=== PATIENT | female | born 1995 | race Caucasian/White ===

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

== ENCOUNTER 2017-03-20 17:59 | Outpatient (CLI) | payer OTHER, MEDICAID ==
[2017-03-20 18:33] LABS: AMORPHOUS SEDIMENT,URINE TRACE /HPF; APPEARANCE,URINE SLIGHTLY-CLOUDY; BILIRUBIN,URINE NEGATIVE (NEGATIVE); GLUCOSE, URINE NEGATIVE (NEGATIVE); KETONES,URINE NEGATIVE (NEGATIVE); LEUKOCYTE ESTERASE,URINE MODERATE (NEGATIVE); NITRITE,URINE NEGATIVE (NEGATIVE); PROTEIN,URINE NEGATIVE (NEGATIVE); URINE SPECIFIC GRAVITY 1.006; UROBILINOGEN,URINE NEGATIVE mg/dL (<2.0)
[2017-03-20 18:46] LABS: URINE BARBITURATES SCREEN NEGATIVE; URINE METHADONE SCREEN NEGATIVE; URINE OPIATES LOW NEGATIVE; URINE PHENCYCLIDINE SCREEN NEGATIVE
== END 2017-03-20 18:44 | disposition home or self-care (01) ==
LOC: LC 17:59
PROVIDERS: ATTEND Obstetrics & Gynecology
PROC: 4A1HXCZ Monitoring of Products of Conception, Cardiac Rate, External Approach (ICD-10-PCS; principal; 2017-03-20)
DX: O36.8130 Decreased fetal movements, third trimester, not applicable or unspecified (principal); Z3A.29 29 weeks gestation of pregnancy
CPT/HCPCS: 80307; 81001

== ENCOUNTER 2017-04-09 21:39 | Outpatient (CLI) | payer OTHER, MEDICAID ==
[2017-04-09 22:28] LABS: APPEARANCE,URINE SLIGHTLY-CLOUDY; BILIRUBIN,URINE NEGATIVE (NEGATIVE); GLUCOSE, URINE NEGATIVE (NEGATIVE); KETONES,URINE NEGATIVE (NEGATIVE); LEUKOCYTE ESTERASE,URINE NEGATIVE (NEGATIVE); NITRITE,URINE NEGATIVE (NEGATIVE); PROTEIN,URINE NEGATIVE (NEGATIVE); URINE SPECIFIC GRAVITY 1.012; UROBILINOGEN,URINE NEGATIVE mg/dL (<2.0)
[2017-04-09 22:39] LABS: URINE BARBITURATES SCREEN NEGATIVE; URINE METHADONE SCREEN NEGATIVE; URINE OPIATES LOW NEGATIVE; URINE PHENCYCLIDINE SCREEN NEGATIVE
[2017-04-09] MEDS: RINGERS SOLUTION,LACTATED 1,000 ML IV PRN ×2 (23:14→23:16)
[2017-04-09] MEDS ORDERED: TERBUTALINE SULFATE INJ/PF 1 MG/1 ML SDV SUBCUT ONE (23:21)
[2017-04-09] MEDS ORDERED: TERBUTALINE SULFATE INJ/PF 1 MG/1 ML SDV ONE (23:22)
--- NOTE | 2017-04-10 00:17 | RADIOLOGY REPORT (SQ) ---
EXAM DESCRIPTION: U/S OB LIMITED COMPLETED DATE/TIME: 04/10/2017 12:04 am REASON FOR STUDY: cervical length, EFW, presentation for PTL COMPARISON: None. TECHNIQUE: Limited transvaginal grayscale ultrasound for evaluation of specific requested obstetrica l parameters. LIMITATIONS: None. FINDINGS: CERVICAL LENGTH: 2.6 cm Closed. FHR: 137 beats per minute. PRESENTATION: Cephalic. OTHER: No other significant findings. IMPRESSION: LIMITED OBSTETRICAL ULTRASOUND WITH MEASURED PARAMETERS DELINEATED ABOVE. Trimester of : Third trimester - 28 weeks to delivery. TECHNICAL DOCUMENTATION: JOB ID: [id number] [employer]- All Rights Reserved
== END 2017-04-10 00:36 | disposition home or self-care (01) ==
LOC: LC 21:39
PROVIDERS: ATTEND Obstetrics & Gynecology
PROC: 4A1HXCZ Monitoring of Products of Conception, Cardiac Rate, External Approach (ICD-10-PCS; principal; 2017-04-09)
DX: O47.03 False labor before 37 completed weeks of gestation, third trimester (principal); Z3A.31 31 weeks gestation of pregnancy
CPT/HCPCS: 59899; 94760; 81001; 80307; 76815; J3105

== ENCOUNTER 2017-04-30 15:15 | Outpatient (CLI) | payer OTHER, MEDICAID ==
[2017-04-30 16:12] LABS: AMNISURE (ROM) NEGATIVE (NEGATIVE)
[2017-04-30 16:15] LABS: APPEARANCE,URINE CLEAR; BILIRUBIN,URINE NEGATIVE (NEGATIVE); GLUCOSE, URINE NEGATIVE (NEGATIVE); KETONES,URINE NEGATIVE (NEGATIVE); LEUKOCYTE ESTERASE,URINE TRACE (NEGATIVE); NITRITE,URINE NEGATIVE (NEGATIVE); PROTEIN,URINE NEGATIVE (NEGATIVE); URINE SPECIFIC GRAVITY 1.005; UROBILINOGEN,URINE NEGATIVE mg/dL (<2.0)
[2017-04-30 16:26] LABS: BACTERIA,URINE TRACE /HPF; WBC,URINE 0-1 /HPF
[2017-04-30 16:29] LABS: URINE BARBITURATES SCREEN NEGATIVE; URINE METHADONE SCREEN NEGATIVE; URINE OPIATES LOW NEGATIVE; URINE PHENCYCLIDINE SCREEN NEGATIVE
--- NOTE | 2017-04-30 16:31 | Non Stress Test Report ---
Non Stress Test Datetime Report Generated by CPN: 04/30/2017 16:30 DEMOGRAPHIC Test Number: 1 EGA NST: 34.6 INDICATION Indication for Study: Ordered by Provider MONITORING Monitor Explained: Monitor Explained; Test Explained; Patient Verbalized Understanding Time on Monitor: 04/30/2017 15:39 Time off Monitor: 04/30/2017 16:21 NST Duration: 42 NST INTERVENTIONS NST Interventions: PO Hydration; Reposition Patient Physician Notified NST: DrAntoni Greer BABY A: [id number] BABY A Movement : Present Contraction Frequency : Irreg FHR Baseline : 140 Accelerations : 15X15 Decelerations : None Variability : Moderate 6-25bpm NST Review: Meets Criteria for Reactive NST NST Review and Verified By : Primitivo Valentin RN NST Results: Reactive NST REPORT Report Trigger: Send Report
[2017-04-30] MEDS ORDERED: PENICILLIN G-K 5 MILLION UNIT VIAL ONE ×2 (17:31→22:10)
[2017-04-30] MEDS: RINGERS SOLUTION,LACTATED 1,000 ML IV PRN ×2 (17:33→19:04)
[2017-04-30 18:00] LABS: ABSOLUTE EOSINOPHILS # (AUTO) 0.2 10^3/uL (0.0-0.6); ABSOLUTE LYMPHOCYTES (AUTO) 2.5 10^3/uL (0.5-4.7); ABSOLUTE MONOCYTES (AUTO) 0.8 10^3/uL (0.1-1.4); ABSOLUTE NEUT (AUTO) 8.9 10^3/uL (1.7-8.2); BASOPHILS % (AUTO) 0.3 % (0-2); EOSINOPHILS % (AUTO) 1.6 % (0-6); HEMATOCRIT 32.9 % (36.0-47.0); HEMOGLOBIN 11.3 g/dL (12.0-15.5); MEAN CORPUSCULAR HEMOGLOBIN 31.9 pg (27.0-33.4); MEAN CORPUSCULAR HGB CONC 34.4 g/dL (32.0-36.0); MEAN CORPUSCULAR VOLUME 93 fl (80-97); MONOCYTES % (AUTO) 6.1 % (3-13); RED BLOOD COUNT 3.55 10^6/uL (3.72-5.28); RED CELL DISTRIBUTION WIDTH 12.6 % (11.5-14.0); WHITE BLOOD COUNT 12.3 10^3/uL (4.0-10.5)
[2017-04-30] MEDS ORDERED: PENICILLIN G POTASSIUM 5,000,000 UNIT in DEXTROSE 5%-WATER 100 ML IV ONE (18:00)
[2017-04-30 19:57] LABS: CHLAM PCR NOT DETECTED (NOT DETECT)
--- NOTE | 2017-04-30 19:57 | RADIOLOGY REPORT (SQ) ---
EXAM DESCRIPTION: U/S OB LIMITED COMPLETED DATE/TIME: 04/30/2017 7:37 pm REASON FOR STUDY: presentation, EFW, and JONNIE for ctx. bedside u/s COMPARISON: None. TECHNIQUE: Limited transabdominal grayscale ultrasound for evaluation of specific requested obstetri gerardo parameters. LIMITATIONS: None. FINDINGS: JONNIE: 10.3 cm. FHR: 132 beats per minute. PRESENTATION: Cephalic. OTHER: EFW 7 lb 14 oz. EGA 38 weeks 4 days. IMPRESSION: LIMITED OBSTETRICAL ULTRASOUND WITH MEASURED PARAMETERS DELINEATED ABOVE. Trimester of : Third trimester - 28 weeks to delivery. TECHNICAL DOCUMENTATION: JOB ID: [id number] [employer]- All Rights Reserved
[2017-04-30] MEDS: PENICILLIN G POTASSIUM 2,500,000 UNIT in DEXTROSE 5%-WATER 50 ML IV SCH (22:11)
[2017-05-01] MEDS ORDERED: PENICILLIN G-K 5 MILLION UNIT VIAL ONE ×2 (02:37→06:31)
[2017-05-01] MEDS: PENICILLIN G POTASSIUM 2,500,000 UNIT in DEXTROSE 5%-WATER 50 ML IV SCH ×2 (02:40→06:36)
[2017-05-01] MEDS: RINGERS SOLUTION,LACTATED 1,000 ML IV PRN (02:47)
--- NOTE | 2017-05-01 07:41 | PDOC DISCHARGE SUMMARY ---
General - Admit/Disc Date/PCP Admission Date/Primary Care Provider: 04/30/17 17:09 DARIO KIMBLE Discharge Date: 05/01/17 - Discharge Diagnosis (1) labor in third trimester Is this a current diagnosis for this admission?: Yes Summary: Pt admitted due to ctx and cvx 3 cm. Cervix change to 4cm approx 4 hours later. Now no cervical change since 2099 last pm and pt reports contractions are significantly improved. Still feels the occasional ctx - Additional Information Home Medications: No122/Iron/Folic Acid [ Multi Tablet] 1 tab PO DAILY 03/20/17 Albuterol Sulfate [Proair Hfa Inhalation Aerosol 8.5 gm Mdi] 2 puff IH Q4 PRN History of Present Illness Patient complains of: contractions History of Present Illness: SEBASTIAN PARSONS is a 22 year old female admitted due to ctx at 34+6ega and cvx 3 cm. Cervix change to 4cm approx 4 hours later. Now no cervical change since 2099 last pm and pt reports contractions are significantly improved. Still feels the occasional ctx but not painful like last night. GBS done at admission Hospital Course Hospital Course: 22 year old female admitted due to ctx at 34+6ega and cvx 3 cm. Cervix change to 4cm approx 4 hours later. Now no cervical change since 2099 last pm and pt reports contractions are significantly improved. Still feels the occasional ctx but not painful like last night. GBS done at admission. Now feeling much better. Meets criteria for discharge and will f/u with [facility] office closely until delivery. Physical Exam - Physical Exam Vital Signs: Intake & Output 04/30/17 05/01/17 05/02/17 06:59 06:59 06:59 Weight 73.45 kg General appearance: PRESENT: no acute distress, well-developed, well-nourished Respiratory exam: PRESENT: clear to auscultation margarito, symmetrical, unlabored. ABSENT: wheezes Cardiovascular exam: PRESENT: RRR. ABSENT: diastolic murmur, rubs, systolic murmur GI/Abdominal exam: PRESENT: normal bowel sounds, soft. ABSENT: distended, guarding, mass, organolmegaly, rebound, tenderness Rectal exam: PRESENT: deferred Extremities exam: PRESENT: full ROM. ABSENT: calf tenderness, clubbing, pedal edema Neurological exam: PRESENT: alert, awake, oriented to person, oriented to place , oriented to time, oriented to situation, CN II-XII grossly intact. ABSENT: motor sensory deficit Psychiatric exam: PRESENT: appropriate affect, normal mood. ABSENT: homicidal ideation, suicidal ideation Skin exam: PRESENT: dry, intact, warm. ABSENT: cyanosis, rash Result Laboratory Results: 04/30/17 17:43 04/30/17 04/30/17 04/30/17 15:29 17:43 17:43 WBC 12.3 H RBC 3.55 L Hgb 11.3 L Hct 32.9 L MCV 93 MCH 31.9 MCHC 34.4 RDW 12.6 Plt Count 237 Seg Neutrophils % 72.0 Lymphocytes % 20.0 Monocytes % 6.1 Eosinophils % 1.6 Basophils % 0.3 Absolute Neutrophils 8.9 H Absolute Lymphocytes 2.5 Absolute Monocytes 0.8 Absolute Eosinophils 0.2 Absolute Basophils 0.0 Urine Color STRAW Urine Appearance CLEAR Urine pH 7.0 Ur Specific [place] 1.005 Urine Protein NEGATIVE Urine Glucose (UA) NEGATIVE Urine Ketones NEGATIVE Urine Blood NEGATIVE Urine Nitrite NEGATIVE Ur Leukocyte Esterase TRACE H Ur Squamous Epith Cells MODERATE Blood Type A POSITIVE Antibody Screen NEGATIVE Impressions: Obstetrics Ultrasound 04/30/17 00:00 IMPRESSION: LIMITED OBSTETRICAL ULTRASOUND WITH MEASURED PARAMETERS DELINEATED ABOVE. Trimester of : Third trimester - 28 weeks to delivery. Status: Imported from PACS Plan Discharge Plan: Discharge to home with f/u in office at [facility] Time Spent: Less than 30 Minutes
--- NOTE | 2017-05-01 07:53 | Non Stress Test Report ---
Non Stress Test Datetime Report Generated by CPN: 05/01/2017 07:53 DEMOGRAPHIC EGA NST: 35.0 INDICATION Indication for Study: Ordered by Provider MONITORING Monitor Explained: Monitor Explained; Test Explained; Patient Verbalized Understanding Time on Monitor: 05/01/2017 07:03 Time off Monitor: 05/01/2017 07:38 NST Duration: 35 NST INTERVENTIONS NST Interventions: PO Hydration; IV Fluids Physician Notified NST: Greer BABY A Movement : Present Contraction Frequency : irregular FHR Baseline : 135 Accelerations : 15X15 Decelerations : None Variability : Moderate 6-25bpm NST Review: Meets Criteria for Reactive NST NST Review and Verified By : Ainsley Julian RNC NST Results: Reactive NST REPORT Report Trigger: Send Report
--- NOTE | 2017-05-03 10:18 | Admission Physical ---
Datetime Report Generated by CPN: 05/03/2017 10:18 CURRENT ADMISSION Chief Complaint: Uterine Contractions; Suspected Ruptured Membranes Chief Complaint Other: no e/o PPROM. amnisure negative Indication for Induction: Not Applicable Indication for Induction: , Intrauterine ; Intact Membranes Admit Plan: Admit to Unit; Initiate Labor Protocol ALLERGIES Medication Allergies: No Medication Allergies: No Known Allergies (04/30/2017) Medication Allergies: No Known Allergies (04/09/2017) Medication Allergies: No Known Allergies (03/20/2017) Medication Allergies: No Known Allergies (10/13/2016) Latex: No Latex Allergies OBSTETRICAL HISTORY EDC: 06/05/2017 00:00 : 2 Para: 0 Term: 0 : 0 SAB: 0 IAB: 0 Ectopic: 0 Livin Cesareans: 0 VBACs: 0 Multiple Births: 0 Gestational Diabetes: No Rh Sensitization: No Incompetent Cervix: No LUISITO: No Infertility: No ART Treatment: No Uterine Anomaly: No IUGR: No Hx Previous C/S: No Macrosomia: No Hx Loss/Stillborn: No PIH: No Hx : No Placenta Previa/Abruption: No Depression/PP Depression: No PTL/PROM: No Post Hemorrhage: No Current Procedures: Ultrasound; NST SEE RECORDS Alcohol: No Marijuana : No Cocaine: No Other Illicit Drugs: No Cigarettes: Former Smoker. 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 Heart Disease: No Hosp/Surgery: Yes Autoimmune Disorder: No Anesthetic Complications: Yes Kidney Disease: No Abnormal Pap Smear: No Neuro/Epilepsy: No Psychiatric Disorders: No Other Medical Diseases: No Hepatitis/Liver Disease: No Significant Family History: No Varicosities/Phlebitis: No Trauma/Violence : No Thyroid Dysfunction: No Medical History Comments: 2014- ruptured ovarian cysts, nerve damage right leg INFECTIOUS HISTORY Gonorrhea: No Genital Herpes: No Chlamydia: No Tuberculosis: No Syphilis: No Hepatitis: No HIV/AIDS Exposure: No Rash or Viral Illness: No HPV: No PHYSICAL EXAM General: Normal HEENT: Normal Neurologic: Normal Thyroid: Normal Heart: Normal Lungs: Normal Breast: Deferred Back: Normal Abdomen: Normal Genitourinary Exam: Normal Extremities: Normal DTRs: Normal Pelvic Type: Adequate Vital Signs: Reviewed VAGINAL EXAM Dilatation: 3 Effacement: 50 Station: -2 Contraction Comments: q 4 MEMBRANES Pooling: Negative Ferning Results: Negative Membranes: Intact FETUS A Monitoring: External US FHR- Baseline: 130 Variability: Moderate 6-25bpm Accelerations: 15X15 Decelerations: None FHR Category: Category I Presentation: Vertex Admit Comment: 22yo at 34+6ega presents for suspected ROM - however, amnisure negative. Pt was observed on 04/09 and given terb for symptomatic ctx. Not given steroids or admitted overnight. Cvx 3cm/50/-2/soft/posterior to left. Ctx q 4 (patient breathing through these). Admit for observation. GBS and GC/CT ordered. Will ge admission labs. US ordered for presentation, efw/kelvin. Pelvis unproven. Reassuring FWB. PCN for GBS prophy. No indication to stop ctx as patient is greater than 34wks. WIll continue to monitor. PLANS FOR LABOR AND DELIVERY Pain Management: Epidural Feeding Preference: Breast Benefit of Breast Feed Discussed: Yes Circumcision: Yes INFORMED CONSENT Informed Consent Obtained: Vaginal Delivery; Risks, Benefits and Alternatives Discussed Signature: with User ID: [email or web address]
== END 2017-05-01 07:58 | disposition home or self-care (01) ==
LOC: LC 15:15 → LR 17:09 → UNDOADMIN 17:09 → LC 05-01 07:58 → UNDODISIN 05-01 07:58
PROVIDERS: ATTEND Student in an Organized Health Care Education/Training Program
PROC: 4A1HXCZ Monitoring of Products of Conception, Cardiac Rate, External Approach (ICD-10-PCS; principal; 2017-04-30)
DX: O47.03 False labor before 37 completed weeks of gestation, third trimester (principal); Z3A.34 34 weeks gestation of pregnancy
CPT/HCPCS: 59025; 84112; 86900; 86901; 36415; 87086; 86850; 85025; 86592; 81001; 87081; 80307; 87491; 87591; 76815; J2540 ×2

== ENCOUNTER 2017-05-02 15:18 | Outpatient (CLI) | payer OTHER, MEDICAID ==
[2017-05-02 17:12] LABS: AMNISURE (ROM) NEGATIVE (NEGATIVE)
[2017-05-02 17:47] LABS: APPEARANCE,URINE SLIGHTLY-CLOUDY; BILIRUBIN,URINE NEGATIVE (NEGATIVE); GLUCOSE, URINE NEGATIVE (NEGATIVE); KETONES,URINE 20 mg/dL (NEGATIVE); LEUKOCYTE ESTERASE,URINE TRACE (NEGATIVE); NITRITE,URINE NEGATIVE (NEGATIVE); PROTEIN,URINE NEGATIVE (NEGATIVE); URINE SPECIFIC GRAVITY 1.006; UROBILINOGEN,URINE NEGATIVE mg/dL (<2.0)
[2017-05-02] MEDS ORDERED: HYDROXYZINE PAMOATE 50 MG CAPSULE PO ONE (18:17)
[2017-05-02 18:19] LABS: URINE BARBITURATES SCREEN NEGATIVE; URINE METHADONE SCREEN NEGATIVE; URINE OPIATES LOW NEGATIVE; URINE PHENCYCLIDINE SCREEN NEGATIVE
[2017-05-02] MEDS ORDERED: HYDROXYZINE PAMOATE 50 MG CAPSULE ONE (18:21)
== END 2017-05-02 18:53 | disposition home or self-care (01) ==
LOC: LC 15:18
PROVIDERS: ATTEND Obstetrics & Gynecology
PROC: 4A1HXCZ Monitoring of Products of Conception, Cardiac Rate, External Approach (ICD-10-PCS; principal; 2017-05-02)
DX: O47.03 False labor before 37 completed weeks of gestation, third trimester (principal); Z3A.35 35 weeks gestation of pregnancy
CPT/HCPCS: 80307; 81001; 84112

== ENCOUNTER 2017-05-12 17:28 | Outpatient (CLI) | payer OTHER, MEDICAID ==
[2017-05-12] MEDS ORDERED: ACETAMINOPHEN 325 MG TABLET PO ONE (17:47)
[2017-05-12] MEDS ORDERED: HYDROXYZINE PAMOATE 50 MG CAPSULE PO ONE (17:47)
[2017-05-12] MEDS ORDERED: ACETAMINOPHEN 325 MG TABLET ONE (17:48)
[2017-05-12] MEDS ORDERED: HYDROXYZINE PAMOATE 50 MG CAPSULE ONE (17:48)
[2017-05-12 18:05] LABS: APPEARANCE,URINE CLOUDY; BILIRUBIN,URINE NEGATIVE (NEGATIVE); GLUCOSE, URINE NEGATIVE (NEGATIVE); KETONES,URINE TRACE mg/dL (NEGATIVE); LEUKOCYTE ESTERASE,URINE LARGE (NEGATIVE); NITRITE,URINE NEGATIVE (NEGATIVE); PROTEIN,URINE NEGATIVE (NEGATIVE); URINE SPECIFIC GRAVITY 1.002; UROBILINOGEN,URINE NEGATIVE mg/dL (<2.0)
[2017-05-12 18:28] LABS: URINE BARBITURATES SCREEN NEGATIVE; URINE METHADONE SCREEN NEGATIVE; URINE OPIATES LOW NEGATIVE; URINE PHENCYCLIDINE SCREEN NEGATIVE
--- NOTE | 2017-05-12 18:47 | Non Stress Test Report ---
Non Stress Test Datetime Report Generated by CPN: 05/12/2017 18:46 DEMOGRAPHIC EGA NST: 36.4 INDICATION Indication for Study: Other Indication for Study (NST) Other: Contractions MONITORING Monitor Explained: Monitor Explained; Test Explained; Patient Verbalized Understanding Time on Monitor: 05/12/2017 17:17 Time off Monitor: 05/12/2017 18:35 NST Duration: 78 NST INTERVENTIONS NST Interventions: PO Hydration Physician Notified NST: Dr. Clifford BABY A: [id number] BABY A Movement : Present Contraction Frequency : 2-6 FHR Baseline : 140 Accelerations : 15X15 Decelerations : None Variability : Moderate 6-25bpm NST Review: Meets Criteria for Reactive NST NST Review and Verified By : JOHNNA Rodriguez Results: Reactive NST COMMENTS NST Comments: Dr. Clifford reviewed strip, order received to d/c pt home NST REPORT Report Trigger: Send Report
== END 2017-05-12 18:54 | disposition home or self-care (01) ==
LOC: LC 17:28
PROVIDERS: ATTEND Obstetrics & Gynecology
PROC: 4A1HXCZ Monitoring of Products of Conception, Cardiac Rate, External Approach (ICD-10-PCS; principal; 2017-05-12)
DX: O47.03 False labor before 37 completed weeks of gestation, third trimester (principal); Z3A.36 36 weeks gestation of pregnancy
CPT/HCPCS: 59025; 80307; 81005

== ENCOUNTER 2017-05-14 07:08 | Inpatient (IN) | payer OTHER, MEDICAID ==
[2017-05-14] MEDS ORDERED: NALBUPHINE HCL INJ 10 MG/1 ML AMPULE INJ ONE (07:40)
[2017-05-14] MEDS ORDERED: PROMETHAZINE HCL INJ 25 MG/1 ML VIAL IV ONE (07:41)
[2017-05-14 07:58] LABS: APPEARANCE,URINE CLOUDY; BILIRUBIN,URINE NEGATIVE (NEGATIVE); GLUCOSE, URINE NEGATIVE (NEGATIVE); KETONES,URINE TRACE mg/dL (NEGATIVE); LEUKOCYTE ESTERASE,URINE LARGE (NEGATIVE); NITRITE,URINE NEGATIVE (NEGATIVE); PROTEIN,URINE NEGATIVE (NEGATIVE); URINE SPECIFIC GRAVITY 1.012; UROBILINOGEN,URINE NEGATIVE mg/dL (<2.0)
[2017-05-14 08:13] LABS: URINE BARBITURATES SCREEN NEGATIVE; URINE METHADONE SCREEN NEGATIVE; URINE OPIATES LOW NEGATIVE; URINE PHENCYCLIDINE SCREEN NEGATIVE
[2017-05-14] MEDS ORDERED: PROMETHAZINE HCL INJ 25 MG/1 ML VIAL ONE (08:35)
[2017-05-14] MEDS ORDERED: NALBUPHINE HCL INJ 10 MG/1 ML AMPULE ONE (08:35)
[2017-05-14 08:45] LABS: HEMATOCRIT 36.1 % (36.0-47.0); HEMOGLOBIN 12.3 g/dL (12.0-15.5); HGB HCT DIFFERENCE 0.8; MEAN CORPUSCULAR HEMOGLOBIN 31.5 pg (27.0-33.4); MEAN CORPUSCULAR VOLUME 93 fl (80-97); RED BLOOD COUNT 3.89 10^6/uL (3.72-5.28); RED CELL DISTRIBUTION WIDTH 12.5 % (11.5-14.0); WHITE BLOOD COUNT 20.1 10^3/uL (4.0-10.5)
[2017-05-14 08:59] LABS: BASOPHILS % (MANUAL) 0 % (0-2); EOSINOPHILS % (MANUAL) 0 % (0-6); LYMPHOCYTES % (MANUAL) 11 % (13-45); TOTAL CELLS COUNTED 100
[2017-05-14 09:00] LABS: HYPOCHROMASIA SLIGHT
[2017-05-14] MEDS ORDERED: RINGERS SOLUTION,LACTATED 1,000 ML IV PRN (10:20)
[2017-05-14] MEDS ORDERED: BUPIVACAINE HCL 0.25 % INJ/PF (2.5 MG/1 ML) 30 ML VIAL INFIL PRN (16:47)
[2017-05-14] MEDS ORDERED: BENZOIN/ALOE VERA/STORAX/TOLU TINCTURE 60 ML TP PRN (16:47)
[2017-05-14] MEDS ORDERED: EPHEDRINE SULFATE INJ 50 MG/1 ML AMPULE IV PRN (16:47)
[2017-05-14] MEDS ORDERED: FENTANYL/BUPIVACAINE/NS/PF 200 MCG/100 ML RTUINJ EPI PRN (16:47)
[2017-05-14] MEDS ORDERED: FENTANYL CITRATE INJ/PF 100 MCG/2 ML AMPUL EPI PRN (16:52)
[2017-05-14] MEDS ORDERED: PHENYLEPHRINE HCL INJ/PF 10 MG/1 ML SDV ONE (16:54)
[2017-05-14] MEDS ORDERED: FENTANYL/BUPIVACAINE/NS/PF 200 MCG/100 ML RTUINJ EPI ONE (16:54)
[2017-05-14] MEDS ORDERED: FENTANYL CITRATE INJ/PF 100 MCG/2 ML AMPUL ONE ×2 (16:54→17:10)
[2017-05-14] MEDS ORDERED: EPHEDRINE SULFATE INJ 50 MG/1 ML AMPULE ONE (16:54)
[2017-05-14] MEDS ORDERED: BUPIVACAINE HCL 0.25 % INJ/PF (2.5 MG/1 ML) 30 ML VIAL ONE (16:55)
[2017-05-14] MEDS ORDERED: OXYTOCIN/NORMAL SALINE 20 UNIT/1,000 ML RTUINJ ONE (21:50)
[2017-05-14] MEDS ORDERED: MISOPROSTOL 0.2 MG TABLET ONE (21:50)
[2017-05-14] MEDS ORDERED: LIDOCAINE 1% INJ-PF (10 MG/ML) 30 ML SDV ONE (21:50)
[2017-05-14] MEDS ORDERED: PROMETHAZINE HCL 25 MG TABLET PO PRN (22:42)
[2017-05-14] MEDS ORDERED: OXYTOCIN/NORMAL SALINE 20 UNIT/1,000 ML RTUINJ IV PRN (22:42)
[2017-05-14] MEDS ORDERED: PROMETHAZINE HCL 25 MG SUPP.RECT PR PRN (22:42)
[2017-05-14] MEDS ORDERED: DIPHENHYDRAMINE HCL 25 MG CAPSULE PO PRN (22:42)
[2017-05-14] MEDS ORDERED: NA PHOS,M-B/NA PHOS,DI-BA (ADULT) 133 ML ENEMA PR PRN (22:42)
[2017-05-14] MEDS ORDERED: ACETAMINOPHEN 650 MG SUPP.RECT PR PRN (22:42)
[2017-05-14] MEDS ORDERED: PROMETHAZINE HCL INJ 25 MG/1 ML VIAL IV PRN (22:42)
[2017-05-14] MEDS ORDERED: BENZOCAINE/MENTHOL AEROSOL SPRAY 56 ML TOP PRN (22:42)
[2017-05-14] MEDS ORDERED: ZOLPIDEM TARTRATE 5 MG TABLET PO PRN (22:42)
[2017-05-14] MEDS ORDERED: GLYCERIN/WITCH HAZEL LEAF 1 EACH MED..PAD TP PRN (22:42)
[2017-05-14] MEDS ORDERED: PSEUDOEPHEDRINE HCL 30 MG TABLET PO PRN (22:42)
[2017-05-14] MEDS ORDERED: ACETAMINOPHEN WITH CODEINE #3 TABLET PO PRN ×2 (22:42)
[2017-05-14] MEDS ORDERED: DIBUCAINE 1% OINTMENT 28 GM TP PRN (22:42)
[2017-05-14] MEDS ORDERED: MEASLES,MUMPS&RUBELLA VACC/PF 0.5 ML VIAL SUBCUT PRN (22:42)
[2017-05-14] MEDS ORDERED: MAGNESIUM HYDROXIDE SUSP 30 ML UDCUP PO PRN (22:42)
[2017-05-14] MEDS ORDERED: DIPH/PERTUSS(ACELL)/TETANUS VAC/PF 0.5 ML SYR (>=10YO) IM PRN (22:42)
[2017-05-14] MEDS ORDERED: ALBUTEROL SULFATE HFA (90 MCG/PUFF) 200 PUFF/8.5 GM MDI IH PRN (22:44)
--- NOTE | 2017-05-14 23:12 | Delivery Summary ---
Del Sum A-C Datetime Report Generated by CPN: 05/14/2017 23:12 DELIVERY PERSONNEL DELIVERY PERSONNEL: [id number] Delivery Doctor:: Rosy Horton MD Labor and Delivery Nurse:: Ashlee Shell, physical sciences instructor Nurse:: Soledad Cory, RN MATERNAL INFORMATION Delivery Anesthesia: Epidural Medications After Delivery: Pitocin Drip 20 Units/1000ml NSS Estimated Blood Loss (ml): 200 Maternal Complications: Other Other Maternal Complications: labor LABOR SUMMARY EDC: 06/05/2017 00:00 No. Babies in Womb: 1 Attempted: No Labor Anesthesia: Epidural LABOR INFORMATION Reason for Induction: Not Applicable Onset of Labor: 05/14/2017 05:45 Complete Dilatation: 05/14/2017 22:10 Oxytocin: N/A Group B Beta Strep: Negative Steroids Given: None Reason Steroids Not Administered: Not Applicable MEMBRANES Membranes Rupture Method: Artificial Rupture of Membranes: 05/14/2017 21:25 Length of Rupture (hr): 0.97 Amniotic Fluid Color: Clear Amniotic Fluid Amount: Moderate Amniotic Fluid Odor: None STAGES OF LABOR Stage 1 hr: 16 Stage 1 min: 25 Stage 2 hr: 0 Stage 2 min: 13 Stage 3 hr: 1 Stage 3 min: 10 Total Time in Labor hr: 17 Total Time in Labor min: 48 VAGINAL DELIVERY Episiotomy: None Laceration #1: None Laceration Extension #1: N/A Laceration Repair: Not Applicable Sponge Count Correct: Vaginal Sweep Performed BABY A INFORMATION Delivery Date/Time: 05/14/2017 22:23 Method of Delivery: Vaginal Born in Route : No : N/A Forceps: N/A Vacuum Extraction: N/A Shoulder Dystocia : No PRESENTATION/POSITION BABY A Presentation: Cephalic Cephalic Presentation: Vertex Breech Presentation: N/A PLACENTA INFORMATION BABY A Placenta Delivery Time : 05/14/2017 23:33 Placenta Method of Delivery: Spontaneous Placenta Status: Delivered SCORES BABY A Heart Rate 1 min: >100 bpm Resp Effort 1 min: Good Cry Reflex Irritability 1 min: Cough or Sneeze or Pulls Away Muscle Tone 1 min: Active Motion Color 1 min: Body Darden, Extremities Blue SCORE 1 MIN: 9 Heart Rate 5 min: >100 bpm Resp Effort 5 min: Good Cry Reflex Irritability 5 min: Cough or Sneeze or Pulls Away Muscle Tone 5 min: Active Motion Color 5 min: Body Darden, Extremities Blue SCORE 5 MIN: 9 INFANT INFORMATION BABY A Gestational Age at Delivery: 36.6 Gestational Status: Late - 34- 36.6 Weeks Infant Outcome : Liveborn Condition : Stable Infant Sex: Male IDENTIFICATION BABY A Infant Verification Date/Time: 05/14/2017 22:23 ID Band Number: [id number] Mother's Name Verified: Yes RN Verifying Infant: Nico Valente RN Additional Verifying Personnel: Jose Carlos Ji RN WEIGHT/LENGTH BABY A Infant Birthweight (gm): 3400 Infant Weight (lb): 7 Weight (oz): 8 Infant Length (in): 20.50 Length (cm): 52.07 CORD INFORMATION BABY A No. Cord Vessels: 3 Nuchal Cord : N/A Cord Blood Taken: Yes-For Storage (Mom's Blood type +) Infant Suction: Mouth; Nose ASSESSMENT BABY A Infant Complications: Multiple Variable Decels Physical Findings at Delivery: Within Normal Limits Respirations: Appears Normal Skin to Skin: Yes Marker Machine/ALS Called : No Care By: Mary Anne Ray RN Transferred To: Remains with Mother SIGNATURES Signature: with User ID: [email or web address]
[2017-05-14] MEDS ORDERED: AMPICILLIN SOD/SULBACTAM 3 GM VIAL IV PRN (23:26)
[2017-05-14] MEDS ORDERED: AMPICILLIN SOD/SULBACTAM 3 GM VIAL IV SCH (23:30)
[2017-05-14] MEDS ORDERED: AMPICILLIN SOD/SULBACTAM 3 GM VIAL ONE (23:59)
[2017-05-15] MEDS ORDERED: AMPICILLIN SOD/SULBACTAM 3 GM VIAL ONE (00:10)
--- NOTE | 2017-05-15 00:59 | Admission Physical ---
Datetime Report Generated by CPN: 05/15/2017 00:59 CURRENT ADMISSION Chief Complaint: Uterine Contractions; Suspected Ruptured Membranes Chief Complaint Other: no e/o PPROM. amnisure negative Indication for Induction: Not Applicable Indication for Induction: , Intrauterine ; Intact Membranes Admit Plan: Admit to Unit; Initiate Labor Protocol ALLERGIES Medication Allergies: No Medication Allergies: No Known Allergies (05/14/2017) Medication Allergies: No Known Allergies (05/02/2017) Medication Allergies: No Known Allergies (04/30/2017) Medication Allergies: No Known Allergies (04/09/2017) Medication Allergies: No Known Allergies (03/20/2017) Medication Allergies: No Known Allergies (10/13/2016) Latex: No Latex Allergies Food Allergies: None Environmental Allergies: None OBSTETRICAL HISTORY EDC: 06/05/2017 00:00 : 2 Para: 0 Term: 0 : 0 SAB: 0 IAB: 0 Ectopic: 0 Livin Cesareans: 0 VBACs: 0 Multiple Births: 0 Gestational Diabetes: No Rh Sensitization: No Incompetent Cervix: No LUISITO: No Infertility: No ART Treatment: No Uterine Anomaly: No IUGR: No Hx Previous C/S: No Macrosomia: No Hx Loss/Stillborn: No PIH: No Hx : No Placenta Previa/Abruption: No Depression/PP Depression: No PTL/PROM: Yes Post Hemorrhage: No Current Procedures: Ultrasound; NST Obstetrical History Comments: G1 - Current SEE RECORDS Alcohol: No Marijuana : No Cocaine: No Other Illicit Drugs: No Cigarettes: Former Smoker. 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 Heart Disease: No Hosp/Surgery: Yes Autoimmune Disorder: No Anesthetic Complications: Yes Kidney Disease: No Abnormal Pap Smear: No Neuro/Epilepsy: No Psychiatric Disorders: No Other Medical Diseases: No Hepatitis/Liver Disease: No Significant Family History: No Varicosities/Phlebitis: No Trauma/Violence : No Thyroid Dysfunction: No Medical History Comments: 2014- ruptured ovarian cysts, nerve damage right leg, asthma has inhaler but hasn't used since first trimester INFECTIOUS HISTORY Gonorrhea: No Genital Herpes: No Chlamydia: No Tuberculosis: No Syphilis: No Hepatitis: No HIV/AIDS Exposure: No Rash or Viral Illness: No HPV: No PHYSICAL EXAM General: Normal HEENT: Normal Neurologic: Normal Thyroid: Normal Heart: Normal Lungs: Normal Breast: Deferred Back: Normal Abdomen: Normal Genitourinary Exam: Normal Extremities: Normal DTRs: Normal Pelvic Type: Adequate Vital Signs: Reviewed VAGINAL EXAM Dilatation: 3 Effacement: 50 Station: -2 Contraction Comments: q 4 MEMBRANES Pooling: Negative Ferning Results: Negative Membranes: Intact FETUS A EGA: 34.6 Monitoring: External US FHR- Baseline: 130 Variability: Moderate 6-25bpm Accelerations: 15X15 Decelerations: None FHR Category: Category I Presentation: Vertex Admit Comment: 22yo at 34+6ega presents for suspected ROM - however, amnisure negative. Pt was observed on 04/09 and given terb for symptomatic ctx. Not given steroids or admitted overnight. Cvx 3cm/50/-2/soft/posterior to left. Ctx q 4 (patient breathing through these). Admit for observation. GBS and GC/CT ordered. Will ge admission labs. US ordered for presentation, efw/kelvin. Pelvis unproven. Reassuring FWB. PCN for GBS prophy. No indication to stop ctx as patient is greater than 34wks. WIll continue to monitor. PLANS FOR LABOR AND DELIVERY Labor and Delivery: None Pain Management: Epidural Feeding Preference: Breast Benefit of Breast Feed Discussed: Yes Circumcision: Yes INFORMED CONSENT Informed Consent Obtained: Vaginal Delivery; Risks, Benefits and Alternatives Discussed Signature: with User ID: [email or web address]
[2017-05-15] MEDS: IBUPROFEN 800 MG TABLET PO SCH ×3 (05:21→21:20)
[2017-05-15] MEDS: AMPICILLIN SODIUM/SULBACTAM NA 3 GM in NORMAL SALINE 100 ML IV SCH ×2 (05:22→12:29)
[2017-05-15 08:02] LABS: HEMATOCRIT 27.9 % (36.0-47.0); HGB HCT DIFFERENCE 0.6; MEAN CORPUSCULAR HEMOGLOBIN 31.7 pg (27.0-33.4); MEAN CORPUSCULAR VOLUME 93 fl (80-97); RED BLOOD COUNT 2.99 10^6/uL (3.72-5.28); RED CELL DISTRIBUTION WIDTH 12.9 % (11.5-14.0); WHITE BLOOD COUNT 18.2 10^3/uL (4.0-10.5)
[2017-05-15 08:03] LABS: HEMOGLOBIN 9.5 g/dL (12.0-15.5)
--- NOTE | 2017-05-15 09:12 | PDOC PROGRESS REPORT ---
Subjective-OB Subjective: Post Delivery Day: 22 year old. Denies any needs at this time Doing well, no c/o, hsb with pt, voiding, eating well, normal bleeding Physical Exam (OB) Vital Signs: Temp Pulse Resp BP Pulse Ox 98.2 F 77 16 94/54 L 99 05/15/17 08:16 05/15/17 08:16 05/15/17 08:16 05/15/17 08:16 05/15/17 08:16 Intake & Output 05/14/17 05/15/17 05/16/17 06:59 06:59 06:59 Weight 74.5 kg - Lochia Lochia Amount: Small 10-25 ml Lochia Color: Rubra/Red - Abdomen Description: Soft Hernia Present: No Fundal Description: Firm, Midline Fundal Height: u/u - u/2 Objective-Diagnostic Laboratory: 05/15/17 07:07 05/15/17 07:07 WBC 18.2 H RBC 2.99 L Hgb 9.5 L D Hct 27.9 L MCV 93 MCH 31.7 MCHC 34.0 RDW 12.9 Plt Count 203 Assessment and Plan(PN) - Assessment and Plan (1) Delivery normal Is this a current diagnosis for this admission?: Yes - Time Spent with Patient Time with patient: Less than 15 minutes Medications reviewed and adjusted accordingly: Yes - Disposition Anticipated Discharge: Home Within: within 24 hours
[2017-05-15] MEDS: PRENATAL VITAMIN W-O CA NO5/FE FUMARATE/FA CAPSULE PO SCH (09:35)
[2017-05-15] MEDS: FAMOTIDINE 20 MG TABLET PO SCH ×2 (09:36→21:20)
[2017-05-15] MEDS: FERROUS SULFATE 325 MG TABLET PO SCH ×2 (09:36→18:07)
[2017-05-15] MEDS: DOCUSATE SODIUM 100 MG CAPSULE PO SCH ×2 (09:36→18:07)
[2017-05-15] MEDS: SENNOSIDES/DOCUSATE 8.6-50 MG 1 EACH TABLET PO SCH (09:37)
[2017-05-15] MEDS ORDERED: (PENDING PHARMACY ID) (Prenatal No122/Iron/Folic Acid [Prenatal Multi Tablet] 1 TAB) PO SCH (10:00)
[2017-05-15] MEDS ORDERED: INFLUENZA ADLT QUAD (36MOS+) 2017-18 VAC 0.5 ML SYR IM PRN (10:46)
[2017-05-16] MEDS: IBUPROFEN 800 MG TABLET PO SCH ×3 (06:19→21:14)
--- NOTE | 2017-05-16 11:15 | PDOC DISCHARGE SUMMARY ---
Final Diagnosis Discharge Date: 05/16/17 Discharge Data - Discharge Medication Home Medications: No122/Iron/Folic Acid [ Multi Tablet] 1 tab PO DAILY 03/20/17 Albuterol Sulfate [Proair Hfa Inhalation Aerosol 8.5 gm Mdi] 2 puff IH Q4 PRN Ferrous Sulfate [Feosol 325 mg Tablet] 325 mg PO BID #90 tablet 05/16/17 Ibuprofen [Motrin 800 mg Tablet] 800 mg PO Q8 #90 tablet 05/16/17 Reason(s) for Admission: Labor Intrapartum Procedure(s): Spontaneous Vaginal Delivery - Diagnosis Test Laboratory: Temp Pulse Resp BP Pulse Ox 97.8 F 66 16 102/73 99 05/16/17 03:27 05/16/17 03:27 05/16/17 03:27 05/16/17 03:27 05/16/17 03:27 05/14/17 05/14/17 05/15/17 07:18 08:15 07:07 RBC 3.89 2.99 L Hgb 12.3 9.5 L D Hct 36.1 27.9 L Urine Opiates Screen NEGATIVE - Discharge information/Instructions Discharge Activity: Activity As Tolerated Discharge Diet: Regular Disposition: HOME, SELF-CARE Follow up with: [facility] in: 4
--- NOTE | 2017-05-16 11:17 | PDOC PROGRESS REPORT ---
Subjective-OB Subjective: Post Delivery Day: 22 year old. Denies any needs at this time pt attempting to breastfeed multiple consults with editorial specialist assisted pt with good latch encouraged pt [id number] mild lochia late discharge this evening poc reviewed Physical Exam (OB) Vital Signs: Temp Pulse Resp BP Pulse Ox 97.8 F 66 16 102/73 99 05/16/17 03:27 05/16/17 03:27 05/16/17 03:27 05/16/17 03:27 05/16/17 03:27 Intake & Output 05/15/17 05/16/17 05/17/17 06:59 06:59 06:59 Intake Total 480 Balance 480 Weight 74.5 kg - PIH/Pre-Eclampsia DTR's: 2 + Clonus: Negative Headache: Absent Epigastric Pain: No Visual Changes: No - Lochia Lochia Amount: Scant < 10 ml Lochia Color: Rubra/Red - Abdomen Description: Soft Hernia Present: No Fundal Description: Firm, Midline Fundal Height: u/u - u/2 Objective-Diagnostic Laboratory: 05/15/17 07:07 Assessment and Plan(PN) - Time Spent with Patient Medications reviewed and adjusted accordingly: Yes - Disposition Anticipated Discharge: Home
[2017-05-16] MEDS: PRENATAL VITAMIN W-O CA NO5/FE FUMARATE/FA CAPSULE PO SCH (11:30)
[2017-05-16] MEDS: DOCUSATE SODIUM 100 MG CAPSULE PO SCH ×2 (11:30→18:53)
[2017-05-16] MEDS: SENNOSIDES/DOCUSATE 8.6-50 MG 1 EACH TABLET PO SCH (11:31)
[2017-05-16] MEDS: FAMOTIDINE 20 MG TABLET PO SCH ×2 (11:31→21:14)
[2017-05-16] MEDS: FERROUS SULFATE 325 MG TABLET PO SCH ×2 (11:31→18:53)
[2017-05-16 15:33] LABS: ABSOLUTE BASOPHILS # (AUTO) 0.1 10^3/uL (0.0-0.2); ABSOLUTE EOSINOPHILS # (AUTO) 0.4 10^3/uL (0.0-0.6); ABSOLUTE LYMPHOCYTES (AUTO) 2.8 10^3/uL (0.5-4.7); ABSOLUTE MONOCYTES (AUTO) 0.7 10^3/uL (0.1-1.4); ABSOLUTE NEUT (AUTO) 8.9 10^3/uL (1.7-8.2); BASOPHILS % (AUTO) 0.6 % (0-2); HEMATOCRIT 32.5 % (36.0-47.0); HEMOGLOBIN 11.1 g/dL (12.0-15.5); HGB HCT DIFFERENCE 0.8; MEAN CORPUSCULAR HEMOGLOBIN 31.6 pg (27.0-33.4); MEAN CORPUSCULAR HGB CONC 34.1 g/dL (32.0-36.0); MEAN CORPUSCULAR VOLUME 93 fl (80-97); MONOCYTES % (AUTO) 5.5 % (3-13); RED CELL DISTRIBUTION WIDTH 12.8 % (11.5-14.0); SEGMENTED NEUTROPHILS % (AUTO) 68.9 % (42-78); WHITE BLOOD COUNT 12.9 10^3/uL (4.0-10.5)
[2017-05-17] MEDS: IBUPROFEN 800 MG TABLET PO SCH (05:53)
[2017-05-17 08:18] VITALS: BP 107/60
--- NOTE | 2017-05-17 09:11 | PDOC PROGRESS REPORT ---
Subjective-OB Subjective: Post Delivery Day: 22 year old. Denies any needs at this time discharge withheld yesterday due to blood in breast sample no cracked nipples noted infant with good, but temporary latch consult assisted with WBCs elevated 05/15/17 breast sample cultured WBCs today decreased to 12.9 d/c home follow up in clinic 2 weeks Physical Exam (OB) Vital Signs: Temp Pulse Resp BP Pulse Ox 97.9 F 68 16 107/60 99 05/17/17 07:36 05/17/17 07:36 05/17/17 07:36 05/17/17 07:36 05/17/17 07:36 Intake & Output 05/16/17 05/17/17 05/18/17 06:59 06:59 06:59 Intake Total 480 325 Balance 480 325 - PIH/Pre-Eclampsia DTR's: 2 + Clonus: Negative Headache: Absent Epigastric Pain: No Visual Changes: No - Lochia Lochia Amount: Scant < 10 ml Lochia Color: Rubra/Red - Abdomen Description: Soft Hernia Present: No Fundal Description: Firm, Midline Fundal Height: u/u - u/2 Objective-Diagnostic Laboratory: 05/16/17 15:23 05/16/17 15:23 WBC 12.9 H RBC 3.50 L Hgb 11.1 L Hct 32.5 L MCV 93 MCH 31.6 MCHC 34.1 RDW 12.8 Plt Count 260 Seg Neutrophils % 68.9 Lymphocytes % 22.0 Monocytes % 5.5 Eosinophils % 3.0 Basophils % 0.6 Absolute Neutrophils 8.9 H Absolute Lymphocytes 2.8 Absolute Monocytes 0.7 Absolute Eosinophils 0.4 Absolute Basophils 0.1 Assessment and Plan(PN) - Time Spent with Patient Medications reviewed and adjusted accordingly: Yes - Disposition Anticipated Discharge: Home
[2017-05-17] MEDS: PRENATAL VITAMIN W-O CA NO5/FE FUMARATE/FA CAPSULE PO SCH (10:33)
[2017-05-17] MEDS: DOCUSATE SODIUM 100 MG CAPSULE PO SCH (10:33)
[2017-05-17] MEDS: FAMOTIDINE 20 MG TABLET PO SCH (10:33)
[2017-05-17] MEDS: FERROUS SULFATE 325 MG TABLET PO SCH (10:33)
[2017-05-17] MEDS: SENNOSIDES/DOCUSATE 8.6-50 MG 1 EACH TABLET PO SCH (10:33)
== END 2017-05-17 10:48 | disposition home or self-care (01) | DRG 775 ==
LOC: LC 07:08 → INTOOBSV 07:46 → LR 07:46 → OBSVTOIN 07:46 → 2S 05-15 00:40
PROVIDERS: ADMIT Obstetrics & Gynecology; ATTEND Obstetrics & Gynecology
PROC: 10E0XZZ Delivery of Products of Conception, External Approach (ICD-10-PCS; principal; 2017-05-14)
PROC: 4A1HXCZ Monitoring of Products of Conception, Cardiac Rate, External Approach (ICD-10-PCS; 2017-05-14)
PROC: 3E0234Z Introduction of Serum, Toxoid and Vaccine into Muscle, Percutaneous Approach (ICD-10-PCS; 2017-05-14)
DX: O60.14X0 Preterm labor third trimester with preterm delivery third trimester, not applicable or unspecified (principal); O76 Abnormality in fetal heart rate and rhythm complicating labor and delivery; O99.334 Smoking (tobacco) complicating childbirth; F17.210 Nicotine dependence, cigarettes, uncomplicated; O99.52 Diseases of the respiratory system complicating childbirth; J45.909 Unspecified asthma, uncomplicated; Z3A.36 36 weeks gestation of pregnancy; Z37.0 Single live birth; Z23 Encounter for immunization
CPT/HCPCS: 36415; 80307; 81005; 85025; 85027; 86592; 86850; 86900; 86901; 87070; 87075; 87205; 90686; 94760; J0295; J2300; J2370; J2550; J2590; J3010; J3490

== ENCOUNTER 2017-10-21 15:14 | Emergency (ER) | payer MEDICAID, OTHER ==
[2017-10-21] MEDS ORDERED: ONDANSETRON HCL INJ/PF 4 MG/2 ML SDV IV ONE ×2 (16:27→17:37)
[2017-10-21] MEDS ORDERED: HYDROMORPHONE HCL INJ/PF 2 MG/ML AMPULE IV ONE (16:27)
[2017-10-21] MEDS ORDERED: RINGERS SOLUTION,LACTATED 1,000 ML IV ONE ×2 (16:27→18:45)
--- NOTE | 2017-10-21 16:28 | ER Document Report ---
ED Medical Screen (RME) - General Mode of Arrival: Ambulatory Information source: Patient TRAVEL OUTSIDE OF THE [place] IN LAST 30 DAYS: No - HPI Patient complains to provider of: Vomiting and diarrhea Onset: This morning Associated Symptoms: Other - see notes above <JOSE PISANO - Last Filed: 10/21/17 17:38> <MANINDER WINSTON - Last Filed: 10/21/17 18:05> - General Chief Complaint: Flank Pain Stated Complaint: VOMITING BLOOD Time Seen by Provider: 10/21/17 16:21 Notes: 22-year-old female with no past surgical history presents to the ED complaining of vomiting that started at 0500 this morning. Patient went to work and proceeded to have clear emesis every 5 minutes. Patient has been unable to keep water or donte aleah down. While at work patient developed diarrhea. Patient also notes that there was some blood present in her vomit. (JOSE PISANO) - Related Data Allergies/Adverse Reactions: No Known Allergies Allergy (Verified 10/21/17 16:27) Past Medical History - General Information source: Patient - Social History Chew tobacco use (# tins/day): No Frequency of alcohol use: None Drug Abuse: None Pulmonary Medical History: Reports: Hx Asthma Renal/ Medical History: Denies: Hx Peritoneal Dialysis Past Surgical History: Reports: Hx Orthopedic Surgery - Immunizations Hx Diphtheria, Pertussis, Tetanus Vaccination: Yes History of Influenza Vaccine for 04/2017 - 09/2017 Season: No <JOES PISANO - Last Filed: 10/21/17 17:38> Review of Systems - Review of Systems Constitutional: No symptoms reported EENT: No symptoms reported Cardiovascular: No symptoms reported Respiratory: No symptoms reported Gastrointestinal: See HPI, Diarrhea, Vomiting, Blood in vomit - small amount Genitourinary: No symptoms reported Female Genitourinary: No symptoms reported Musculoskeletal: No symptoms reported Skin: No symptoms reported Hematologic/Lymphatic: No symptoms reported Neurological/Psychological: No symptoms reported -: Yes All other systems reviewed and negative <JOSE PISANO - Last Filed: 10/21/17 17:38> - Vital signs Vitals: Temp Pulse Resp BP Pulse Ox 98.0 F 104 H 16 120/79 99 10/21/17 15:23 10/21/17 15:23 10/21/17 15:23 10/21/17 15:23 10/21/17 15:23 Course - Laboratory Result Diagrams: 10/21/17 17:17 10/21/17 17:17 <JOSE PISANO - Last Filed: 10/21/17 17:38> - Laboratory Result Diagrams: 10/21/17 17:17 10/21/17 17:17 <MANINDER WINSTON - Last Filed: 10/21/17 18:05> - Vital Signs Vital signs: Temp Pulse Resp BP Pulse Ox 98.0 F 104 H 16 120/79 99 10/21/17 15:23 10/21/17 15:23 10/21/17 15:23 10/21/17 15:23 10/21/17 15:23 - Laboratory Laboratory results interpreted by me: 10/21/17 17:17 WBC 11.3 H Seg Neutrophils % 88.9 H Lymphocytes % 6.4 L Absolute Neutrophils 10.1 H Doctor's Discharge <JOSE PISANO - Last Filed: 10/21/17 17:38> <MANINDER WINSTON - Last Filed: 10/21/17 18:05> - Discharge Referrals: KELTON MENDOZA PA-C [Primary Care Provider] - Follow up as needed Scribe Documentation - Scribe Written by Devoraibdiana:: Raheem Sevilla, 10/21/2017 1742 acting as scribe for :: Sandra <JOSE PISANO - Last Filed: 10/21/17 17:38>
[2017-10-21 17:45] LABS: ABSOLUTE EOSINOPHILS # (AUTO) 0.1 10^3/uL (0.0-0.6); ABSOLUTE LYMPHOCYTES (AUTO) 0.7 10^3/uL (0.5-4.7); ABSOLUTE MONOCYTES (AUTO) 0.4 10^3/uL (0.1-1.4); ABSOLUTE NEUT (AUTO) 10.1 10^3/uL (1.7-8.2); BASOPHILS % (AUTO) 0.1 % (0-2); EOSINOPHILS % (AUTO) 0.7 % (0-6); HEMATOCRIT 44.1 % (36.0-47.0); HEMOGLOBIN 14.8 g/dL (12.0-15.5); LYMPHOCYTES % (AUTO) 6.4 % (13-45); MEAN CORPUSCULAR HEMOGLOBIN 30.7 pg (27.0-33.4); MEAN CORPUSCULAR HGB CONC 33.5 g/dL (32.0-36.0); MEAN CORPUSCULAR VOLUME 92 fl (80-97); MONOCYTES % (AUTO) 3.9 % (3-13); PLATELET COUNT 366 10^3/uL (150-450); RED BLOOD COUNT 4.81 10^6/uL (3.72-5.28); RED CELL DISTRIBUTION WIDTH 12.8 % (11.5-14.0); SEGMENTED NEUTROPHILS % (AUTO) 88.9 % (42-78); TOTAL CELLS COUNTED % (AUTO) 100 %; WHITE BLOOD COUNT 11.3 10^3/uL (4.0-10.5)
[2017-10-21 17:59] LABS: ALANINE AMINOTRANSFERASE 29 U/L (9-52); ALBUMIN 5.1 g/dL (3.5-5.0); ALKALINE PHOSPHATASE 91 U/L (38-126); ANION GAP 12 (5-19); ASPARTATE AMINO TRANSFERASE 18 U/L (14-36); BILIRUBIN,DIRECT 0.1 mg/dL (0.0-0.4); BILIRUBIN,TOTAL 0.5 mg/dL (0.2-1.3); BLOOD UREA NITROGEN 12 mg/dL (7-20); CALCIUM 10.4 mg/dL (8.4-10.2); CARBON DIOXIDE 27 mmol/L (22-30); CHLORIDE 102 mmol/L (98-107); GLUCOSE 95 mg/dL (75-110); LIPASE 73.8 U/L (23-300); POTASSIUM 4.5 mmol/L (3.6-5.0); SODIUM 141.2 mmol/L (137-145)
[2017-10-21] MEDS ORDERED: METOCLOPRAMIDE HCL INJ/PF 10 MG/2 ML SDV IV ONE (18:45)
[2017-10-21 20:15] LABS: APPEARANCE,URINE SLIGHTLY-CLOUDY; BILIRUBIN,URINE NEGATIVE (NEGATIVE); COLOR,URINE YELLOW; GLUCOSE, URINE NEGATIVE (NEGATIVE); KETONES,URINE 80 mg/dL (NEGATIVE); LEUKOCYTE ESTERASE,URINE TRACE (NEGATIVE); NITRITE,URINE NEGATIVE (NEGATIVE); PROTEIN,URINE NEGATIVE (NEGATIVE); URINE SPECIFIC GRAVITY 1.023; UROBILINOGEN,URINE NEGATIVE mg/dL (<2.0)
[2017-10-21] MEDS ORDERED: ONDANSETRON ODT 4 MG TAB (6 TAB/ER DISP) PO PRN (20:58)
--- NOTE | 2017-10-21 21:01 | ER Document Report ---
ED General - General Chief Complaint: Flank Pain Stated Complaint: VOMITING BLOOD Time Seen by Provider: 10/21/17 16:21 Mode of Arrival: Ambulatory Notes: Patient is a 22 year old female without past medical history who presents with 12 hours of nausea, vomiting, bilateral flank pain, and intermittent abdominal cramping. She also notes that she has had diarrhea today. She states that her symptoms started relatively abruptly and worsened rapidly although have improved somewhat since that time. She describes mild, constant, throbbing bilateral flank tenderness slightly worse to the left. Nothing improves or worsens that pain. She notes intermittent associated dysuria. States he has had difficulty tolerating any form of oral intake since onset of her symptoms. She has not seen her primary doctor regarding today's concerns. She denies any history of similar symptoms in the past. TRAVEL OUTSIDE OF THE [place] IN LAST 30 DAYS: No - Related Data Allergies/Adverse Reactions: No Known Allergies Allergy (Verified 10/21/17 16:27) Past Medical History - General Information source: Patient - Social History Smoking Status: Never Smoker Chew tobacco use (# tins/day): No Frequency of alcohol use: None Drug Abuse: None Lives with: Spouse/Significant other Family History: Reviewed & Not Pertinent Patient has suicidal ideation: No Patient has homicidal ideation: No Pulmonary Medical History: Reports: Hx Asthma Renal/ Medical History: Denies: Hx Peritoneal Dialysis Past Surgical History: Reports: Hx Orthopedic Surgery - Immunizations Hx Diphtheria, Pertussis, Tetanus Vaccination: Yes Review of Systems - Review of Systems Notes: Constitutional: Negative for fever. HENT: Negative for sore throat. Eyes: Negative for visual changes. Cardiovascular: Negative for chest pain. Respiratory: Negative for shortness of breath. Gastrointestinal: Positive for abdominal cramping, vomiting, diarrhea Genitourinary: Positive for dysuria. Musculoskeletal: Negative for back pain. Skin: Negative for rash. Neurological: Negative for headaches, weakness or numbness. 10 point ROS negative except as marked above and in HPI. Physical Exam - Vital signs Vitals: Temp Pulse Resp BP Pulse Ox 98.0 F 104 H 16 120/79 99 10/21/17 15:23 10/21/17 15:23 10/21/17 15:23 10/21/17 15:23 10/21/17 15:23 Interpretation: Normal Notes: PHYSICAL EXAMINATION: GENERAL: Appears somewhat fatigued but in no acute distress HEAD: Atraumatic, normocephalic. EYES: Pupils equal round and reactive to light, extraocular movements intact, sclera anicteric, conjunctiva are normal. ENT: nares patent, oropharynx clear without exudates. Moderately dry mucous membranes. NECK: Normal range of motion, supple without lymphadenopathy LUNGS: Breath sounds clear to auscultation bilaterally and equal. No wheezes rales or rhonchi. HEART: Regular rate and rhythm without murmurs ABDOMEN: Soft, nontender, normoactive bowel sounds. No guarding, no rebound. No masses appreciated. Mild bilateral CVA tenderness. EXTREMITIES: Normal range of motion, no pitting or edema. No cyanosis. NEUROLOGICAL: No focal neurological deficits. Moves all extremities spontaneously and on command. PSYCH: Normal mood, normal affect. SKIN: Warm, Dry, normal turgor, no rashes or lesions noted. Course - Re-evaluation Re-evalutation: 10/21/17 20:59 Presentation of an overall well-appearing patient in no acute distress with complaints of nausea, vomiting, diarrhea. This is consistent with likely viral gastroenteritis. Patient has no abdominal tenderness on exam and specifically no tenderness in the RLQ, LLQ, RUQ. Patient did have some mild bilateral CVA tenderness and urinalysis does note findings consistent with a urinary tract infection although atypical for pyelonephritis. However given her CVA tenderness she will be covered with cephalexin for 7 days. Able to tolerate oral intake here in the emergency department. Low clinical suspicion for any acute life-threatening etiology based on exam and history including acute cholecystitis, SBO, appendicitis, nephrolithiasis. CMP without evidence of acute hepatitis or significant dehydration. At this time will discharge with return precautions and follow-up recommendations. Verbal discharge instructions given a the bedside and opportunity for questions given. Medication warnings reviewed. Patient is in agreement with this plan and has verbalized understanding of return precautions and the need for primary care follow-up in the next 24-72 hours. - Vital Signs Vital signs: Temp Pulse Resp BP Pulse Ox 98.1 F 77 14 118/77 96 10/21/17 21:23 10/21/17 21:23 10/21/17 18:47 10/21/17 21:23 10/21/17 21:23 - Laboratory Result Diagrams: 10/21/17 17:17 10/21/17 17:17 Laboratory results interpreted by me: 10/21/17 10/21/17 10/21/17 17:17 17:17 19:52 WBC 11.3 H Seg Neutrophils % 88.9 H Lymphocytes % 6.4 L Absolute Neutrophils 10.1 H Calcium 10.4 H Albumin 5.1 H Urine Ketones 80 H Ur Leukocyte Esterase TRACE H Discharge - Discharge Clinical Impression: Nausea vomiting and diarrhea, Bilateral flank pain, Dehydration Urinary tract infection Qualifiers: Urinary tract infection type: acute pyelonephritis Qualified Code(s): N10 - Acute pyelonephritis Condition: Good Disposition: HOME, SELF-CARE Additional Instructions: Your symptoms are likely due to a viral illness and should resolve in the next several days. However, your urine is mildly infected. A culture will be sent and we are beginning antibiotics to cover for any possibility that a kidney infection could be causing her symptoms. Continue to stay hydrated with plenty of solution such as Gatorade or Pedialyte. You are being prescribed Zofran to take as needed for nausea and vomiting. Please return if you develop severe abdominal pain, pass out, become unable to tolerate any oral fluids for 12 more hours, or any other symptoms that are concerning to you. Prescriptions: Cephalexin Monohydrate [Keflex 500 mg Capsule] 500 mg PO Q6H 7 Days capsule Referrals: KELTON MENDOZA PA-C [Primary Care Provider] - Follow up as needed
[2017-10-21] MEDS ORDERED: CEPHALEXIN 500 MG CAPSULE PO ONE (21:20)
[2017-10-21 21:24] VITALS: BP 118/77
== END 2017-10-21 21:25 | disposition home or self-care (01) ==
LOC: ER 15:14
DX: N10 Acute pyelonephritis (principal); R11.2 Nausea with vomiting, unspecified; R19.7 Diarrhea, unspecified; E86.0 Dehydration; R10.9 Unspecified abdominal pain; J45.909 Unspecified asthma, uncomplicated
CPT/HCPCS: 99284; 96361; 96374; 96375; 36415; 87086; 83690; 84703; 85025; 80053; 81001; J2765; J1170; J2405; J7120